=== PATIENT | male | born 1950 | race Caucasian/White ===

== ENCOUNTER 2019-03-03 09:24 | Emergency (ER) | payer OTHER ==
[2019-03-03 09:39] VITALS: RESP 16; TEMP 98
[2019-03-03] MEDS ORDERED: SODIUM CHLORIDE 0.9% 500 ML 500 ML IV STA (09:46)
[2019-03-03 09:57] LABS: Basophils % (A) 0 %; Eosinophils # (A) 0.2 k/uL (0-0.7); Eosinophils % (A) 2 %; HCT 39.4 % (39.0-53.0); HGB 13.7 gm/dL (13.0-17.5); Lymphocytes # (A) 1.6 k/uL (1.0-4.8); Lymphocytes % (A) 17 %; MCH 30.9 pg (25.0-35.0); MCHC 34.7 g/dL (31.0-37.0); MCV 89.3 fL (80.0-100.0); Mean Platelet Volume 6.5; Monocytes # (A) 0.4 k/uL (0-1.0); Monocytes % (A) 5 %; Neutrophils # (A) 6.6 k/uL (1.3-7.7); Neutrophils % (A) 73 %; Platelet Count 159 k/uL (150-450); RBC 4.41 m/uL (4.30-5.90); RDW 14.2 % (11.5-15.5)
--- NOTE | 2019-03-03 10:08 | ED ---
General Adult HPI - General Chief complaint: Dizziness Stated complaint: High BP Time Seen by Provider: 03/03/19 09:40 Source: patient, family Mode of arrival: ambulatory Limitations: no limitations - History of Present Illness Initial comments: Dictation was produced using [employer] dictation software. please excuse any grammatical, word or spelling errors. Chief Complaint: 69-year-old male with past medical history of coronary artery disease, diabetes, dyslipidemia hypertension presents with elevated blood pressure. History of Present Illness: 69-year-old male who presents with elevated blood pressure. He had a click suspicion that his blood pressure was elevated because he had 2 episodes of vertigo earlier today. Patient states that early this morning he got up to let out his dogs when he had a short episode of vertigo that lasted for minutes. Patient states that the vertigo resolved on its own when away. He went and sat on the couch had another episode that lasted for a couple minutes. Then that resolved. He went to check his blood pressure and was found to be high. Patient states that he normally gets dizzy when he has elevated blood pressures. She does have a history of hypertension. He takes lisinopril and verapamil for his blood pressure. These hypertensive medications are prescribed to him from the [facility]. Patient has no pain complaints at this time. Denies being dizzy currently. Yesterday was his birthday. Patient normally eats heart healthy diet however last night he had several salty foods from one of the local restaurants. He had barbecue ribs and salt seasoned corn. Denies any alcohol yesterday. The ROS documented in this emergency department record has been reviewed and confirmed by me. Those systems with pertinent positive or negative responses have been documented in the HPI. All other systems are other negative and/or noncontributory. PHYSICAL EXAM: General Impression: Alert and oriented x3, not in acute distress HEENT: Normocephalic atraumatic, extra-ocular movements intact, pupils equal and reactive to light bilaterally, mucous membranes moist. Cardiovascular: Heart regular rate and rhythm, S1&S2 audible, no murmurs, rubs or gallops Chest: Lungs clear to auscultation bilaterally, no rhonchi, no wheeze, no rales Abdomen: Bowel sounds present, abdomen soft, non-tender, non-distended, no organomegaly, obese Musculoskeletal: Pulses present and equal in all extremities, no peripheral edema Motor: no focal deficits noted Neurological: CN II-XII grossly intact, no focal motor or sensory deficits noted Skin: Intact with no visualized rashes Psych: Normal affect and mood ED course: 69-year-old male presents with elevated blood pressure. Vital signs upon arrival shows blood pressure of 185/80, worse vital signs within acceptable limits. Patient has a history of hypertension. Laboratory evaluation obtained. CBC unremarkable. Coag panel unremarkable. Metabolic panel shows findings within acceptable limits. He does have a creatinine of 2.07 and he has a history of stage III kidney disease. Repeat vital signs were obtained patient's blood pressure improved to 125/72. Patient's clinical presentation is consistent with asymptomatic hypertension that was transient. This concerned that maybe he is experiencing a side effect from one of his new medications. Patient has an established care with [place] doctor. He will follow-up for outpatient management of symptoms. There is also concern that patient's increased blood pressure was transient from increased salt intake yesterday is warned of blood pressure spikes when eating salty foods. Patient understandable agreeable to plan. Return parameters discussed. Patient discharged. EKG interpretation: Ventricular rate 82, sinus rhythm, [place] interval 2:30, QRS 120, QTC 455. No old EKG for comparison. Poor R-wave progression. - Related Data Home Medications Medication Instructions Recorded Confirmed Aspirin EC [Ecotrin Low Dose] 81 mg PO DAILY 03/03/19 03/03/19 Cholecalciferol [Vitamin D3 (25 1,000 unit PO DAILY 03/03/19 03/03/19 Mcg = 1000 Iu)] Escitalopram [Lexapro] 20 mg PO DAILY 03/03/19 03/03/19 Gabapentin [Neurontin] 300 mg PO BID 03/03/19 03/03/19 INSULIN ASPART (NovoLOG) [NovoLOG 10 unit SQ DAILY 03/03/19 03/03/19 (formulary)] Insulin Glargine [Lantus] 15 unit SQ DAILY 03/03/19 03/03/19 Lisinopril [Zestril] 20 mg PO DAILY 03/03/19 03/03/19 Multivitamins, Thera [Multivitamin 1 tab PO DAILY 03/03/19 03/03/19 (formulary)] [place]-3 Fatty Acids [[place]-3] 2,000 mg PO BID 03/03/19 03/03/19 Pravastatin Sodium 80 mg PO HS 03/03/19 03/03/19 Sildenafil Citrate [Viagra] 25 mg PO ONCE PRN 03/03/19 03/03/19 Tiotropium [place] [Spiriva 2 puff INHALATION RT-DAILY 03/03/19 03/03/19 Respimat] Verapamil HCl [Verelan] 360 mg PO DAILY 03/03/19 03/03/19 Allergies Allergy/AdvReac Type Severity Reaction Status Date / Time cephalexin [From Keflex] Allergy Rash/Hives Verified 03/03/19 10:06 hydrochlorothiazide Allergy Rash/Hives Verified 03/03/19 10:06 Sulfa (Sulfonamide Allergy Rash/Hives Verified 03/03/19 10:06 Antibiotics) Review of Systems ROS Statement: Those systems with pertinent positive or pertinent negative responses have been documented in the HPI. ROS Other: All systems not noted in ROS Statement are negative. Past Medical History Past Medical History: Coronary Artery Disease (CAD), Chest Pain / Angina, COPD, Diabetes Mellitus, Hyperlipidemia, Hypertension, Myocardial Infarction (MO), Sleep Apnea/CPAP/BIPAP Additional Past Medical History / Comment(s): kidney disease, [place] x4, 3 stents History of Any Multi-Drug Resistant Organisms: None Reported Past Surgical History: Back Surgery, Heart Catheterization With Stent, Orthopedi c Surgery, Tonsillectomy Past Psychological History: No Psychological Hx Reported Smoking Status: Former smoker Past Alcohol Use History: None Reported Past Drug Use History: None Reported General Exam Limitations: no limitations Course Vital Signs 03/03/19 03/03/19 03/03/19 09:34 09:52 11:00 Temperature 98 F Pulse Rate 84 80 73 Respiratory 16 16 16 Rate Blood Pressure 185/88 198/96 125/72 O2 Sat by Pulse 96 99 99 Oximetry Medical Decision Making - Lab Data Result diagrams: 03/03/19 09:50 03/03/19 09:50 Lab Results 03/03/19 03/03/19 03/03/19 Range/Units 09:50 09:50 09:50 WBC 9.0 (3.8-10.6) k/uL RBC 4.41 (4.30-5.90) m/uL Hgb 13.7 (13.0-17.5) gm/dL Hct 39.4 (39.0-53.0) % MCV 89.3 (80.0-100.0) fL MCH 30.9 (25.0-35.0) pg MCHC 34.7 (31.0-37.0) g/dL RDW 14.2 (11.5-15.5) % Plt Count 159 (150-450) k/uL Neutrophils % 73 % Lymphocytes % 17 % Monocytes % 5 % Eosinophils % 2 % Basophils % 0 % Neutrophils # 6.6 (1.3-7.7) k/uL Lymphocytes # 1.6 (1.0-4.8) k/uL Monocytes # 0.4 (0-1.0) k/uL Eosinophils # 0.2 (0-0.7) k/uL Basophils # 0.0 (0-0.2) k/uL PT 9.9 (9.0-12.0) sec INR 0.9 (<1.2) APTT 27.2 (22.0-30.0) sec Sodium 137 (137-145) mmol/L Potassium 4.8 (3.5-5.1) mmol/L Chloride 104 (98-107) mmol/L Carbon Dioxide 19 L (22-30) mmol/L Anion Gap 14 mmol/L BUN 42 H (9-20) mg/dL Creatinine 2.07 H (0.66-1.25) mg/dL Est GFR (CKD-EPI)AfAm 37 (>60 ml/min/1.73 sqM) Est GFR (CKD-EPI)NonAf 32 (>60 ml/min/1.73 sqM) Glucose 238 H (74-99) mg/dL Calcium 9.5 (8.4-10.2) mg/dL Magnesium 1.7 (1.6-2.3) mg/dL Total Bilirubin 0.6 (0.2-1.3) mg/dL AST 29 (17-59) U/L ALT 31 (21-72) U/L Alkaline Phosphatase 51 (38-126) U/L Troponin I (0.000-0.034) ng/mL Total Protein 7.4 (6.3-8.2) g/dL Albumin 4.1 (3.5-5.0) g/dL 03/03/19 Range/Units 09:50 WBC (3.8-10.6) k/uL RBC (4.30-5.90) m/uL Hgb (13.0-17.5) gm/dL Hct (39.0-53.0) % MCV (80.0-100.0) fL MCH (25.0-35.0) pg MCHC (31.0-37.0) g/dL RDW (11.5-15.5) % Plt Count (150-450) k/uL Neutrophils % % Lymphocytes % % Monocytes % % Eosinophils % % Basophils % % Neutrophils # (1.3-7.7) k/uL Lymphocytes # (1.0-4.8) k/uL Monocytes # (0-1.0) k/uL Eosinophils # (0-0.7) k/uL Basophils # (0-0.2) k/uL PT (9.0-12.0) sec INR (<1.2) APTT (22.0-30.0) sec Sodium (137-145) mmol/L Potassium (3.5-5.1) mmol/L Chloride (98-107) mmol/L Carbon Dioxide (22-30) mmol/L Anion Gap mmol/L BUN (9-20) mg/dL Creatinine (0.66-1.25) mg/dL Est GFR (CKD-EPI)AfAm (>60 ml/min/1.73 sqM) Est GFR (CKD-EPI)NonAf (>60 ml/min/1.73 sqM) Glucose (74-99) mg/dL Calcium (8.4-10.2) mg/dL Magnesium (1.6-2.3) mg/dL Total Bilirubin (0.2-1.3) mg/dL AST (17-59) U/L ALT (21-72) U/L Alkaline Phosphatase (38-126) U/L Troponin I <0.012 (0.000-0.034) ng/mL Total Protein (6.3-8.2) g/dL Albumin (3.5-5.0) g/dL Disposition Clinical Impression: Hypertension Disposition: HOME SELF-CARE Condition: Good Instructions (If sedation given, give patient instructions): Dizziness (ED) Is patient prescribed a controlled substance at d/c from ED?: No Referrals: Nonstaff,Physician [Primary Care Provider] - 1-2 days Time of Disposition: 11:16
[2019-03-03 10:17] LABS: INR 0.9 (<1.2); Partial Thromboplastin Time 27.2 sec (22.0-30.0); Prothrombin Time 9.9 sec (9.0-12.0)
[2019-03-03 10:23] LABS: Albumin 4.1 g/dL (3.5-5.0); Calcium 9.5 mg/dL (8.4-10.2); Magnesium 1.7 mg/dL (1.6-2.3); Potassium 4.8 mmol/L (3.5-5.1); Total Bilirubin 0.6 mg/dL (0.2-1.3); Total Protein 7.4 g/dL (6.3-8.2)
--- NOTE | 2019-03-03 10:42 | XR ---
EXAMINATION TYPE: XR chest 1V portable DATE OF EXAM: 03/03/2019 COMPARISON: NONE HISTORY: Chest pain TECHNIQUE: Single frontal view of the chest is obtained. FINDINGS: There are patchy bibasilar opacities. Cardia mediastinal silhouette is mildly enlarged. Ex am is suboptimal given patient body habitus. No sizable pneumothorax. Evaluation for pleural effusion is also suboptimal. No large or moderate pleural effusions are seen. IMPRESSION: Bibasilar airspace disease may represent atelectasis, pneumonia, or could be related to copious overlying soft tissues.
[2019-03-03] MEDS: LABETALOL 5 MG/ML VIAL MDV IVP STA ×2 (10:59→11:02)
[2019-03-03 11:02] VITALS: BP 125/72; PULSE 73
== END 2019-03-03 11:27 | disposition home or self-care (01) ==
LOC: EC 09:24
DX: I10 Essential (primary) hypertension (principal); I25.119 Atherosclerotic heart disease of native coronary artery with unspecified angina pectoris; E11.9 Type 2 diabetes mellitus without complications; E78.5 Hyperlipidemia, unspecified; J44.9 Chronic obstructive pulmonary disease, unspecified; I25.2 Old myocardial infarction; G47.30 Sleep apnea, unspecified; Z79.4 Long term (current) use of insulin; Z79.82 Long term (current) use of aspirin; Z79.899 Other long term (current) drug therapy; Z88.1 Allergy status to other antibiotic agents; Z88.2 Allergy status to sulfonamides; Z88.8 Allergy status to other drugs, medicaments and biological substances; Z87.891 Personal history of nicotine dependence; Z95.5 Presence of coronary angioplasty implant and graft; Z99.89 Dependence on other enabling machines and devices
CPT/HCPCS: 36415; 71045; 80053; 83735; 84484; 85025; 85610; 85730; 93005; 99284